=== PATIENT | female | born 1985 | race Caucasian/White ===

== ENCOUNTER 2016-12-20 15:54 | Emergency (ER) | payer MEDICAID ==
[~2016-12-20 15:54] MED LIST: MOTRIN800 MG PO; PAXIL10 MG PO; PERCOCET 10/3251 TA1 PO; PRENATAL COMPLE1 TAB PO; TENORMIN50 MG PO
[2016-12-20 16:40] LABS: BASOPHILS 0.2 % (0.0-2.0); EOSINOPHILS 2.1 % (0-7); HEMATOCRIT 32.2 % (36.0-48.0); IMMATURE GRANULOCYTES 0.2 % (0-5); LYMPHOCYTES 11.8 % (15-50); MCV 65.3 fL (80.0-100.0); MEAN PLATELET VOLUME 9.3 fL (7.4-10.4); MONOCYTES 12.3 % (2-11); NEUTROPHILS 73.4 % (40-80); RBC 4.93 10x6/uL (4.00-5.40); RDW 17.3 % (11.5-14.5); WBC 8.6 10x3/uL (4.8-10.8)
[2016-12-20 16:59] LABS: MCH 18.3 pg (26.0-34.0); PLATELET COUNT 357 10x3/uL (130-400)
[2016-12-20 17:12] LABS: ALBUMIN 2.9 g/dL (3.4-5.0); ALKALINE PHOSPHATASE 59 U/L (46-116); ALT (SGPT) 13 U/L (10-68); BILIRUBIN - TOTAL 0.28 mg/dL (0.2-1.3); C-REACTIVE PROTEIN 2.6 mg/dL (0.0-0.9); CALC OSMOLALITY 278 mosm/kg (275-300); CALCIUM 8.6 mg/dL (8.5-10.1); CARBON DIOXIDE 28.6 mmol/L (21.0-32.0); CHLORIDE - SERUM 102 mmol/L (98-107); CREATININE - SERUM 0.6 mg/dL (0.6-1.3); GLUCOSE 124 mg/dL (74-106); POTASSIUM - SERUM 3.9 mmol/L (3.5-5.1); PROTEIN - SERUM 7.4 g/dL (6.4-8.2); SODIUM 140 mmol/L (136-145); UREA NITROGEN 10 mg/dL (7-18); eGFR NON AFRICAN AMERICAN > 90 mL/min (90-120)
[2016-12-20 17:59] LABS: HCG SERUM NEGATIVE (NEGATIVE)
== END 2016-12-20 19:13 | disposition home or self-care (01) ==
LOC: D.ER 15:54
PROVIDERS: Emergency Medicine; Physician Assistant
DX: K08.89 Other specified disorders of teeth and supporting structures (principal); K50.90 Crohn's disease, unspecified, without complications; I10 Essential (primary) hypertension; E87.6 Hypokalemia; D50.9 Iron deficiency anemia, unspecified

== ENCOUNTER 2017-01-03 19:48 | Emergency (ER) | payer MEDICAID ==
[2017-01-03 22:47] LABS: BASOPHILS 0.1 % (0.0-2.0); EOSINOPHILS 1.6 % (0-7); HEMATOCRIT 29.3 % (36.0-48.0); HEMOGLOBIN 8.3 g/dL (12-16); IMMATURE GRANULOCYTES 0.1 % (0-5); LYMPHOCYTES 13.1 % (15-50); MCHC 28.3 g/dL (31.0-37.0); MCV 63.7 fL (80.0-100.0); MEAN PLATELET VOLUME 9.5 fL (7.4-10.4); NEUTROPHILS 70.1 % (40-80); PLATELET COUNT 315 10x3/uL (130-400); RDW 17.4 % (11.5-14.5)
[2017-01-03 23:07] LABS: ALBUMIN 2.6 g/dL (3.4-5.0); ALKALINE PHOSPHATASE 41 U/L (46-116); ALT (SGPT) 12 U/L (10-68); BILIRUBIN - TOTAL 0.24 mg/dL (0.2-1.3); CALC OSMOLALITY 275 mosm/kg (275-300); CALCIUM 8.1 mg/dL (8.5-10.1); CHLORIDE - SERUM 101 mmol/L (98-107); CREATININE - SERUM 0.5 mg/dL (0.6-1.3); GLUCOSE 99 mg/dL (74-106); POTASSIUM - SERUM 3.4 mmol/L (3.5-5.1); PROTEIN - SERUM 6.7 g/dL (6.4-8.2); SODIUM 138 mmol/L (136-145); UREA NITROGEN 12 mg/dL (7-18); eGFR NON AFRICAN AMERICAN > 90 mL/min (90-120)
== END 2017-01-03 23:56 | disposition home or self-care (01) ==
LOC: D.ER 19:48
PROVIDERS: Emergency Medicine
DX: K50.90 Crohn's disease, unspecified, without complications (principal); R19.7 Diarrhea, unspecified; E86.0 Dehydration; D50.9 Iron deficiency anemia, unspecified; I10 Essential (primary) hypertension

== ENCOUNTER 2017-07-23 03:52 | Emergency (ER) | payer MEDICAID ==
[2017-07-23 04:46] LABS: BASOPHILS 0.1 % (0-2); EOSINOPHILS 1.5 % (0-7); HEMATOCRIT 32.3 % (36.0-48.0); HEMOGLOBIN 9.5 g/dL (12-16); IMMATURE GRANULOCYTES 0.2 % (0-5); LYMPHOCYTES 7.1 % (15-50); MCHC 29.4 g/dL (31.0-37.0); MCV 64.9 fL (80.0-100.0); MEAN PLATELET VOLUME 9.3 fL (7.4-10.4); MONOCYTES 7.7 % (2-11); NEUTROPHILS 83.4 % (40-80); PLATELET COUNT 327 10x3/uL (130-400); RBC 4.98 10x6/uL (4.00-5.40); RDW 17.4 % (11.5-14.5); WBC 12.3 10x3/uL (4.8-10.8)
[2017-07-23 04:48] LABS: MCH 19.1 pg (26.0-34.0)
[2017-07-23 05:04] LABS: ALBUMIN 2.7 g/dL (3.4-5.0); ALKALINE PHOSPHATASE 61 U/L (46-116); ALT (SGPT) 12 U/L (10-68); CALC OSMOLALITY 272 mosm/kg (275-300); CALCIUM 8.4 mg/dL (8.5-10.1); CARBON DIOXIDE 24.6 mmol/L (21.0-32.0); CHLORIDE - SERUM 103 mmol/L (98-107); CREATININE - SERUM 0.7 mg/dL (0.6-1.3); GLUCOSE 102 mg/dL (74-106); POTASSIUM - SERUM 3.7 mmol/L (3.5-5.1); PROTEIN - SERUM 7.5 g/dL (6.4-8.2); SODIUM 136 mmol/L (136-145); UREA NITROGEN 16 mg/dL (7-18); eGFR NON AFRICAN AMERICAN > 90 mL/min (90-120)
== END 2017-07-23 08:00 | disposition home or self-care (01) ==
LOC: D.ER 03:52
PROVIDERS: Family Medicine
DX: N76.0 Acute vaginitis (principal); D64.9 Anemia, unspecified; I10 Essential (primary) hypertension

== ENCOUNTER 2019-07-11 07:58 | Emergency (ER) | payer MEDICAID ==
[~2019-07-11] VITALS: Ht 160 cm; Wt 75.0 kg
[2019-07-11 08:08] VITALS: Ht 160 cm; Wt 75.0 kg
[2019-07-11] MEDS ORDERED: TRAZODONE HCL150 MG PO (08:10)
[2019-07-11] MEDS ORDERED: PROZAC20 MG PO (08:10)
[2019-07-11 09:13] LABS: HEMATOCRIT 31.1 % (36.0-48.0); LYMPHOCYTES 15.2 % (15-50); MCH 25.1 pg (26.0-34.0); MCHC 32.2 g/dL (31.0-37.0); MCV 78.1 fL (80.0-100.0); MEAN PLATELET VOLUME 10.3 fL (7.4-10.4); NEUTROPHILS 72.3 % (40-80); RBC 3.98 10x6/uL (4.00-5.40); RDW 15.7 % (11.5-14.5)
[2019-07-11 09:15] LABS: PLATELET COUNT 192 10x3/uL (130-400)
[2019-07-11 09:23] LABS: ALBUMIN 2.9 g/dL (3.4-5.0); ALKALINE PHOSPHATASE 65 U/L (46-116); ALT (SGPT) 68 U/L (10-68); BILIRUBIN - TOTAL 0.42 mg/dL (0.2-1.3); CALC OSMOLALITY 276 mosm/kg (275-300); CALCIUM 8.1 mg/dL (8.5-10.1); CARBON DIOXIDE 27.7 mmol/L (21.0-32.0); CHLORIDE - SERUM 105 mmol/L (98-107); CREATININE - SERUM 0.5 mg/dL (0.6-1.3); GLUCOSE 107 mg/dL (74-106); POTASSIUM - SERUM 3.9 mmol/L (3.5-5.1); PROTEIN - SERUM 6.4 g/dL (6.4-8.2); SODIUM 138 mmol/L (136-145); UREA NITROGEN 14 mg/dL (7-18); eGFR NON AFRICAN AMERICAN > 90 mL/min (90-120)
[2019-07-11 09:27] LABS: AMYLASE - SERUM 65 U/L (25-115); LIPASE 312 U/L (73-393); TROPONIN-I < 0.017 ng/mL (0.000-0.060)
[2019-07-11] MEDS ORDERED: LEVAQUIN750 MG PO (11:46)
[2019-07-11] MEDS ORDERED: FLAGYL500 MG PO (11:46)
[2019-07-11 12:08] VITALS: BP 117/66
[2019-07-12 14:08] LABS: HEPATITIS C ANTIBODY >11.0 (0.0-0.9)
== END 2019-07-11 12:15 | disposition home or self-care (01) ==
LOC: D.ER 07:58
PROVIDERS: Family Medicine
DX: K60.4 Rectal fistula (principal)

== ENCOUNTER 2019-08-04 10:35 | Emergency (ER) | payer MEDICAID ==
[~2019-08-04] VITALS: Ht 160 cm; Wt 82.7 kg
[~2019-08-04 10:35] MED LIST changes: +FLAGYL500 MG PO; +LEVAQUIN750 MG PO; +PROZAC20 MG PO; +TRAZODONE HCL150 MG PO
[2019-08-04 10:40] VITALS: BP 154/84; Ht 160 cm; Wt 82.7 kg
[2019-08-04] MEDS ORDERED: LITHIUM CARBON150 MG PO (10:42)
--- NOTE | 2019-08-04 11:45 | NUR ---
DR. STEWARD NOTIFIED AND SITTER ORDERED. SITTER AT BEDSIDE. NOTIFIED CHARGE NURSE AND ATTENDING IN REGARDS TO ASSESSMENT FINDINGS. RESOURCES GIVEN TO PT AND SAFETY PLAN INITIATED.
[2019-08-04 12:07] LABS: BASOPHILS 0.7 % (0-2); EOSINOPHILS 2.5 % (0-7); HEMOGLOBIN 9.5 g/dL (12-16); IMMATURE GRANULOCYTES 0.2 % (0-5); LYMPHOCYTES 28.7 % (15-50); MCH 23.8 pg (26.0-34.0); MCHC 30.6 g/dL (31.0-37.0); MCV 77.5 fL (80.0-100.0); MEAN PLATELET VOLUME 11.5 fL (7.4-10.4); MONOCYTES 13.5 % (2-11); NEUTROPHILS 54.4 % (40-80); PLATELET COUNT 206 10x3/uL (130-400); RDW 14.9 % (11.5-14.5); WBC 4.4 10x3/uL (4.8-10.8)
[2019-08-04 12:09] LABS: APPEARANCE CLEAR (CLEAR); BILIRUBIN NEGATIVE (NEGATIVE); COLOR YELLOW (YELLOW); GLUCOSE NEGATIVE (NEGATIVE); KETONE NEGATIVE (NEGATIVE); NITRITE NEGATIVE (NEGATIVE); PROTEIN NEGATIVE (NEGATIVE); SPECIFIC GRAVITY 1.015 (1.005-1.020); UROBILINOGEN NORMAL (NORMAL)
[2019-08-04 12:10] LABS: HCG URINE NEGATIVE (NEGATIVE)
[2019-08-04 12:11] LABS: SALICYLATES 1.8 mg/dL (2.8-20.0)
[2019-08-04 12:12] LABS: LITHIUM < 0.20 mmol/L (0.60-1.20)
[2019-08-04 12:13] LABS: UDS - AMPHET NEGATIVE QUAL (NEGATIVE); UDS - BARB NEGATIVE QUAL (NEGATIVE); UDS - BENZO NEGATIVE QUAL (NEGATIVE); UDS - COCAINE NEGATIVE QUAL (NEGATIVE); UDS - OPIATE NEGATIVE QUAL (NEGATIVE); UDS - PCP NEGATIVE QUAL (NEGATIVE); UDS - THC NEGATIVE QUAL (NEGATIVE)
[2019-08-04 12:27] LABS: ALKALINE PHOSPHATASE 66 U/L (46-116); ALT (SGPT) 78 U/L (10-68); BILIRUBIN - TOTAL 0.52 mg/dL (0.2-1.3); CALC OSMOLALITY 278 mosm/kg (275-300); CALCIUM 8.1 mg/dL (8.5-10.1); CARBON DIOXIDE 26.5 mmol/L (21.0-32.0); CHLORIDE - SERUM 106 mmol/L (98-107); CREATININE - SERUM 0.5 mg/dL (0.6-1.3); GLUCOSE 91 mg/dL (74-106); MAGNESIUM - SERUM 1.9 mg/dL (1.8-2.4); POTASSIUM - SERUM 3.9 mmol/L (3.5-5.1); PROTEIN - SERUM 6.7 g/dL (6.4-8.2); SODIUM 139 mmol/L (136-145); UREA NITROGEN 15 mg/dL (7-18); eGFR NON AFRICAN AMERICAN > 90 mL/min (90-120)
== END 2019-08-04 16:45 | disposition home or self-care (01) ==
LOC: D.ER 10:35
PROVIDERS: Emergency Medicine
DX: F32.9 Major depressive disorder, single episode, unspecified (principal); F17.200 Nicotine dependence, unspecified, uncomplicated; I10 Essential (primary) hypertension; B19.20 Unspecified viral hepatitis C without hepatic coma

== ENCOUNTER 2019-10-01 19:11 | Emergency (ER) | payer MEDICAID ==
[~2019-10-01] VITALS: Ht 160 cm; Wt 86.4 kg
[~2019-10-01 19:11] MED LIST changes: +LITHIUM CARBON150 MG PO
[2019-10-01 19:21] VITALS: Ht 160 cm; Wt 86.4 kg
--- NOTE | 2019-10-01 20:42 | NUR ---
DR. STEWARD NOTIFIED AND REVIEWED PT'S BEHAVIOR AND ASSESSMENT RESULTS. PT IS A LOW RISK PER DR. STEWARD. DR. STEWARD STATED TO GIVE RESOURCES TO PT AT TIME OF DISCHARGE. NO FURTHER ORDERS AT THIS TIME. RESOURCES REVIEWED WITH PT AND SHE VERBALIZED UNDERSTANDING.
[2019-10-01] MEDS ORDERED: ERYTHROMYCIN OPT1 GM RIGHT EYE (22:12)
[2019-10-01 22:24] VITALS: BP 127/55
== END 2019-10-01 22:24 | disposition home or self-care (01) ==
LOC: D.ER 19:11
DX: S05.8X1A Other injuries of right eye and orbit, initial encounter (principal); T65.91XA Toxic effect of unspecified substance, accidental (unintentional), initial encounter; Y92.9 Unspecified place or not applicable; Y93.9 Activity, unspecified; I10 Essential (primary) hypertension; Z72.0 Tobacco use